=== PATIENT | female | born 1955 | race Caucasian/White ===

== ENCOUNTER 2021-02-06 13:44 | Outpatient (CLI) | payer BC | END 2021-02-06 13:45 | disposition home or self-care (01) | LOC: CSHMRI 13:44 | PROVIDERS: ATTEND Anesthesiology Pain Medicine | DX: R41.89 Other symptoms and signs involving cognitive functions and awareness (principal); R51.9 Headache, unspecified; R42 Dizziness and giddiness | CPT/HCPCS: 70551 ==